=== PATIENT | female | born 1970 | race African-American/Black ===

== ENCOUNTER 2016-07-28 13:21 | Observation (INO) | payer MEDICARE, MEDICAID ==
[2016-07-28 14:21] LABS: Hematocrit 26 % (35-47); Hemoglobin 8.5 g/dl (12.0-16.0); Mean Corpuscular HGB Conc 33 g/dl (31-36); Mean Corpuscular Hemoglobin 30 pg (27-31); Mean Corpuscular Volume 91 fL (80-97); Mean Platelet Volume 9 um3 (7.4-10.4); Red Cell Distribution Width 17 % (10.5-15); White Blood Count 5.9 10^3/ul (3.5-10.8)
[2016-07-28 14:35] LABS: Albumin 3.6 g/dL (3.2-5.2); BUN/Creatinine Ratio 5.3 (8-20); Calcium 9.7 mg/dL (8.6-10.3); EGFR African American 6.7 (>60); EGFR Non-African American 5.2 (>60); Globulin 3.4 g/dL (2-4); Magnesium 2.3 mg/dL (1.9-2.7); Potassium 5.4 mmol/L (3.5-5.0); Total Bilirubin 0.5 mg/dL (0.2-1.0)
[2016-07-28] MEDS ORDERED: oxyCODONE TAB* 5 MG TAB PO ONE (14:40)
--- NOTE | 2016-07-28 14:44 | RAD ---
HISTORY: Shortness of breath, cough, CHF COMPARISONS: June 23, 2016 VIEWS:1: Single frontal portable view of the chest at 2:20 PM FINDINGS: LINES AND TUBES: None. CARDIOMEDIASTINAL SILHOUETTE: The cardiac silhouette is enlarged. The cardiomediastinal silhouette is otherwise normal for portable technique. PLEURA: The costophrenic angles are sharp. No pleural abnormalities are noted. LUNG PARENCHYMA: There is patchy alveolar opacification of the right lower lung. There is prominence of the central pulmonary vasculature ABDOMEN: The upper abdomen is clear. There is no subphrenic gas. BONES AND SOFT TISSUES: No bone or soft tissue abnormalities are noted. IMPRESSION: 1. CARDIOMEGALY. 2. PULMONARY VASCULAR CONGESTION. 3. PATCHY RIGHT BASILAR ATELECTASIS VERSUS CONSOLIDATION
[2016-07-28 14:52] LABS: Troponin I 0.97 ng/mL (<0.04)
--- NOTE | 2016-07-28 15:28 | ED ---
Piero Johnston Matthew, scribed for Clayton Landry MD on 07/28/16 at 1407 . Shortness of Breath - HPI Summary HPI Summary: A 45 y/o female presents to the ED with SOB for the past two days. The patient states she is fine while sitting, but becomes SOB with exertion. She had dialysis on 07/26/16 and did not leave at her dry weight of 107 and left at 109.8kg. Associated symptoms include pedal edema, inability to sleep, and palpitations. The patient denies wheezing, general illness, and rhinorrhea. The patient feels better sitting up. This has happened to the patient before. She is also going to [facility] for a heart catheterization. The patient see's Dr. Adams. Her normal dialysis is tomorrow. - History of Current Complaint Chief Complaint: EDShortnessOfBreath Time Seen by Provider: 07/28/16 13:48 Hx Obtained From: Patient Onset/Duration: Gradual Onset, Lasting Days, Still Present Timing: Constant Current Severity: Moderate Dyspnea At: Exertion Alleviating Factors: Upright Position Associated Signs & Symptoms: Calf Pain/Swelling - Allergy/Home Medications Allergies/Adverse Reactions: Allergies Allergy/AdvReac Type Severity Reaction Status Date / Time Allopurinol Allergy Severe Fever Verified 07/28/16 13:34 PMH/Surg Hx/FS Hx/Imm Hx Endocrine/Hematology History: Reports: Hx Anticoagulant Therapy - ASA 81, Hx Diabetes - TYPE 2 Denies: Hx Thyroid Disease Cardiovascular History: Reports: Hx Cardiomegaly - new, Hx Congestive Heart Failure, Hx Hypercholesterolemia, Hx Hypertension, Other Cardiovascular Problems /Disorders - pericardial effusion Denies: Hx Angina, Hx Coronary Artery Disease, Hx Deep Vein Thrombosis, Hx Myocardial Infarction, Hx Pacemaker/ICD, Hx Valvular Heart Disease Respiratory History: Reports: Hx Chronic Bronchitis, Hx Pulmonary Edema, Other Respiratory Problems/Disorders - chronic cough Denies: Hx Asthma, Hx Chronic Obstructive Pulmonary Disease (COPD), Hx Lung Cancer GI History: Reports: Hx Gastroesophageal Reflux Disease Denies: Hx Gall Bladder Disease, Hx Gastrointestinal Bleed, Hx Ulcer, Hx Urosepsis History: Reports: Hx Chronic Renal Failure, Hx Dialysis - MWF, Hx Renal Disease - CHRONIC RENAL FAILURE. AWAITING TRANSPLANT on dialysis. , Other Problems/Disorders - renal failure cyst Denies: Hx Acute Renal Failure, Hx Benign Prostatic Hyperplasia, Hx Kidney Infection, Hx Kidney Stones Musculoskeletal History: Reports: Hx Arthritis, Hx Back Problems, Hx Osteoporosis, Other Musculoskeletal History - arthritis osteoarthritis right knee Sensory History: Reports: Hx Contacts or Glasses, Hx Glaucoma, Hx Hearing Aid - REMOVED Opthamlomology History: Reports: Hx Contacts or Glasses, Hx Glaucoma Neurological History: Reports: Hx Headaches, Other Neuro Impairments/Disorders - neuropathy benito feet Denies: Hx Dementia, Hx Migraine, Hx Seizures, Hx Transient Ischemic Attacks (TIA) Psychiatric History: Reports: Hx Anxiety, Hx Depression Denies: Hx Panic Disorder - Surgical History Surgery Procedure, Year, and Place: 2000, 2002. LEFT HIP SX PIN 1985. Cardiac cath, no stent. Renal fistual L arm. pericardial window Hx Anesthesia Reactions: No - Immunization History Date of Influenza Vaccine: 2015 Infectious Disease History: No Infectious Disease History: Denies: Hx Clostridium Difficile, Hx Hepatitis, Hx Human Immunodeficiency Virus (HIV), Hx of Known/Suspected MRSA, Hx Shingles, Hx Tuberculosis, Hx Known/ Suspected VRE, Hx Known/Suspected VRSA, History Other Infectious Disease, Traveled Outside the [place] in Last 30 Days - Family History Known Family History: Positive: Hypertension, Diabetes Negative: Cardiac Disease - Social History Alcohol Use: None Substance Use Type: Reports: None Hx Tobacco Use: Yes - quit 2012 Smoking Status (MU): Former Smoker Type: Cigarettes Length of Time of Smoking/Using Tobacco: 10+ Have You Smoked in the Last Year: No Review of Systems Constitutional: Other - inability to sleep Eyes: Negative ENT: Negative Positive: Palpitations Positive: Shortness Of Breath Gastrointestinal: Negative Genitourinary: Negative Musculoskeletal: Negative Skin: Negative Neurological: Negative Psychological: Normal All Other Systems Reviewed And Are Negative: Yes Physical Exam - Summary Physical Exam Summary: The patient is well-nourished, obese, in no acute distress and in no acute pain. The skin is warm and dry and skin color reflects adequate perfusion. HEENT: The head is normocephalic and atraumatic. The pupils are equal and reactive. The conjunctivae are clear and without drainage. Nares are patent and without drainage. Mouth reveals moist mucous membranes and the throat is without erythema and exudate. The external ears are intact. The ear canals are patent and without drainage. The tympanic membranes are intact. Neck is supple with full range of motion and non-tender. There are no carotid bruits. Neck vein distention noted. Respiratory: Chest is non-tender. The patient has bilateral crackles in the base of the lungs with the left greater than the right. Cardiovascular: Heart is tachycardic and regular rhythm. There is no murmur or rub auscultated. Pulses are symmetrical and equal. Abdomen: The abdomen is soft and non-tender. There are normal bowel sounds heard in all four quadrants and there is no organomegaly palpated. Musculoskeletal: There is no back pain noted. Extremities are non-tender with full range of motion. There is good capillary refill. There is no calf tenderness elicited. The patient has pitting edema of the LE. Neurological: Patient is alert and oriented to person, place and time. The patient has symmetrical motor strength in all four extremities. Cranial nerves are grossly intact. Deep tendon reflexes are symmetrical and equal in all four extremities. Psychiatric: The patient has an appropriate affect and does not exhibit any anxiety or depression. Triage Information Reviewed: Yes Vital Signs On Initial Exam: Initial Vitals Temp Pulse Resp BP Pulse Ox 97.6 F 96 18 171/87 99 07/28/16 13:25 07/28/16 13:25 07/28/16 13:25 07/28/16 13:25 07/28/16 13:25 Vital Signs Reviewed: Yes Diagnostics - Vital Signs Vital Signs Temp Pulse Resp BP Pulse Ox 07/28/16 13:25 97.6 F 96 18 171/87 99 - Laboratory Lab Results: Lab Results 07/28/16 07/28/16 07/28/16 Range/Units 14:12 14:12 14:12 WBC 5.9 (3.5-10.8) 10^3/ul RBC 2.80 L (4.0-5.4) 10^6/ul Hgb 8.5 L (12.0-16.0) g/dl Hct 26 L (35-47) % MCV 91 (80-97) fL MCH 30 (27-31) pg MCHC 33 (31-36) g/dl RDW 17 H (10.5-15) % Plt Count 200 (150-450) 10^3/ul MPV 9 (7.4-10.4) um3 Neut % (Auto) 59.8 (38-83) % Lymph % (Auto) 25.5 (25-47) % Bates % (Auto) 9.9 H (1-9) % Eos % (Auto) 3.4 (0-6) % Baso % (Auto) 1.4 (0-2) % Absolute Neuts (auto) 3.5 (1.5-7.7) 10^3/ul Absolute Lymphs (auto) 1.5 (1.0-4.8) 10^3/ul Absolute Monos (auto) 0.6 (0-0.8) 10^3/ul Absolute Eos (auto) 0.2 (0-0.6) 10^3/ul Absolute Basos (auto) 0.1 (0-0.2) 10^3/ul Absolute Nucleated RBC 0.01 10^3/ul Nucleated RBC % 0.1 INR (Anticoag Therapy) (0.89-1.11) Sodium 135 (133-145) mmol/L Potassium 5.4 H (3.5-5.0) mmol/L Chloride 92 L (101-111) mmol/L Carbon Dioxide 34 H (22-32) mmol/L Anion Gap 9 (2-11) mmol/L BUN 44 H (6-24) mg/dL Creatinine 8.36 H (0.51-0.95) mg/dL Est GFR ( Amer) 6.7 (>60) Est GFR (Non-Af Amer) 5.2 (>60) BUN/Creatinine Ratio 5.3 L (8-20) Glucose 129 H (70-100) mg/dL Lactic Acid 1.0 (0.5-2.0) mmol/L Calcium 9.7 (8.6-10.3) mg/dL Magnesium 2.3 (1.9-2.7) mg/dL Total Bilirubin 0.50 (0.2-1.0) mg/dL AST 15 (13-39) U/L ALT 8 (7-52) U/L Alkaline Phosphatase 49 (34-104) U/L Troponin I 0.97 H* (<0.04) ng/mL Total Protein 7.0 (6.4-8.9) g/dL Albumin 3.6 (3.2-5.2) g/dL Globulin 3.4 (2-4) g/dL Albumin/Globulin Ratio 1.1 (1-3) 07/28/16 Range/Units 14:12 WBC (3.5-10.8) 10^3/ul RBC (4.0-5.4) 10^6/ul Hgb (12.0-16.0) g/dl Hct (35-47) % MCV (80-97) fL MCH (27-31) pg MCHC (31-36) g/dl RDW (10.5-15) % Plt Count (150-450) 10^3/ul MPV (7.4-10.4) um3 Neut % (Auto) (38-83) % Lymph % (Auto) (25-47) % Bates % (Auto) (1-9) % Eos % (Auto) (0-6) % Baso % (Auto) (0-2) % Absolute Neuts (auto) (1.5-7.7) 10^3/ul Absolute Lymphs (auto) (1.0-4.8) 10^3/ul Absolute Monos (auto) (0-0.8) 10^3/ul Absolute Eos (auto) (0-0.6) 10^3/ul Absolute Basos (auto) (0-0.2) 10^3/ul Absolute Nucleated RBC 10^3/ul Nucleated RBC % INR (Anticoag Therapy) 1.40 H (0.89-1.11) Sodium (133-145) mmol/L Potassium (3.5-5.0) mmol/L Chloride (101-111) mmol/L Carbon Dioxide (22-32) mmol/L Anion Gap (2-11) mmol/L BUN (6-24) mg/dL Creatinine (0.51-0.95) mg/dL Est GFR ( Amer) (>60) Est GFR (Non-Af Amer) (>60) BUN/Creatinine Ratio (8-20) Glucose (70-100) mg/dL Lactic Acid (0.5-2.0) mmol/L Calcium (8.6-10.3) mg/dL Magnesium (1.9-2.7) mg/dL Total Bilirubin (0.2-1.0) mg/dL AST (13-39) U/L ALT (7-52) U/L Alkaline Phosphatase (34-104) U/L Troponin I (<0.04) ng/mL Total Protein (6.4-8.9) g/dL Albumin (3.2-5.2) g/dL Globulin (2-4) g/dL Albumin/Globulin Ratio (1-3) Result Diagrams: 07/28/16 14:12 07/28/16 14:12 Lab Statement: Any lab studies that have been ordered have been reviewed, and results considered in the medical decision making process. - Radiology CXR Xray Interpretation: Positive (See Comments) - IMPRESSION: 1. CARDIOMEGALY. 2. PULMONARY VASCULAR CONGESTION. 3. PATCHY RIGHT BASILAR ATELECTASIS VERSUS CONSOLIDATION Radiology Interpretation Completed By: Radiologist - EKG 13:41 Cardiac Rate: Tachycardia - 98 bpm EKG Rhythm: Sinus Tachycardia EKG Interpretation: Normal [place]; T-Wave Inversion in I, aVL, V5, and V6; No STEMI Re-Evaluation - Re-Evaluation First Eval Re-Evaluation Time: 15:19 Comment: Discussed plan of care with patient. Pt agrees with plan. Course/Dx - Course Assessment/Plan: I discussed care with Dr. 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 He will arrange dialysis. Patient will be admitted to Dr. Vazquez for further management. - Diagnoses Differential Diagnosis/HQI/PQRI: Positive: CHF, OK, Pneumonia, Other - acute renal failure Provider Diagnoses: Acute CHF, Renal failure, Elevated troponin - Physician Notifications Discussed Care of Patient With: Dr. Adams (nephrology) at 15:00 - he will arrange for dialysis. Dr. Vazquez (hospitalist) at 15:10 - agrees to admit. Discharge - Discharge Plan Condition: Stable Disposition: ADMITTED TO [facility] Referrals: Arti Brito MD [Primary Care Provider] - The documentation as recorded by the Piero chavez Matthew accurately reflects the service I personally performed and the decisions made by me, Clayton Landry MD.
[2016-07-28] MEDS ORDERED: Acetaminophen TAB* 325 MG PO PRN (15:57)
[2016-07-28] MEDS ORDERED: oxyCODONE TAB* 5 MG TAB PO PRN ×2 (16:00→16:48)
[2016-07-28] MEDS ORDERED: Benzonatate CAP* 100 MG PO PRN (16:00)
[2016-07-28] MEDS ORDERED: Ondansetron ODT TAB* 4 MG PO PRN (16:00)
[2016-07-28] MEDS ORDERED: Sevelamer TAB* 800 MG PO SCH (16:00)
[2016-07-28] MEDS ORDERED: Sodium Polystyrene ORAL.SOL* 15 GM/60 ML BTL PO ONE (16:03)
[2016-07-28] MEDS ORDERED: Dextrose 50% Syringe 50 ML* 25 GM/50 ML SYRINGE IV PUSH PRN ×2 (16:52→16:55)
[2016-07-28] MEDS ORDERED: Insulin LISPRO* 1 UNITS UNIT SUBCUT ONE (16:55)
[2016-07-28] MEDS ORDERED: Dextrose 50% Syringe 50 ML* 25 GM/50 ML SYRINGE IV PUSH ONE (16:55)
[2016-07-28] MEDS ORDERED: Atorvastatin* 80 MG TAB PO SCH (17:00)
[2016-07-28] MEDS ORDERED: Warfarin TAB(*) 5 MG PO SCH (17:00)
[2016-07-28] MEDS ORDERED: Warfarin TAB(*) 6 MG PO SCH (17:00)
[2016-07-28 18:32] LABS: BUN/Creatinine Ratio 5.3 (8-20); Calcium 9.5 mg/dL (8.6-10.3); EGFR African American 6.4 (>60); Potassium 5.9 mmol/L (3.5-5.0)
[2016-07-28] MEDS ORDERED: Zolpidem TAB* 5 MG PO PRN (21:00)
[2016-07-28] MEDS: Valsartan TAB* 40 MG PO SCH (21:52)
[2016-07-28] MEDS: hydrALAZINE TAB* 25 MG PO SCH (21:52)
[2016-07-28] MEDS: Carvedilol TAB* 25 MG PO SCH (21:53)
[2016-07-28] MEDS: Sevelamer TAB* 800 MG PO SCH (21:53)
[2016-07-28] MEDS: Isosorbide Dinitrate TAB* 10 MG PO SCH (21:54)
[2016-07-28] MEDS: Heparin VIAL(*) 5000 UNITS/ML VIAL (FIVE THOUSAND) SUBCUT SCH (21:55)
[2016-07-29] MEDS ORDERED: Hydrocortisone 1% CREAM* 30 GM TUBE TOPICAL PRN (02:18)
--- NOTE | 2016-07-29 03:55 | HP ---
ADMISSION HISTORY AND PHYSICAL: DATE OF ADMISSION: 07/28/16 PRIMARY CARE PROVIDER: Arti Brito MD ADMITTING PROVIDER: SHAMAR Lozano SUPERVISING PHYSICIAN: DO Pricilla Hanson (DICTATED BY SHAMAR LOZANO) CHIEF COMPLAINT: Shortness of breath. HISTORY OF PRESENT ILLNESS: This is a 45-year-old female with a history of insulin dependent diabetes; end-stage renal disease, on hemodialysis; hypertension; hyperlipidemia; and history of cardioembolic stroke for which she is anticoagulated with Coumadin who presented with complaints of shortness of breath to the emergency department. The patient states that she has been symptomatic since Friday evening. Her last dialysis was on Friday morning. She felt that not enough fluid had been taken off and her weight leaving dialysis was slightly greater than what is typical for her. She has been describing symptoms consistent with orthopnea, where she feels short of breath and as if she is drowning when she lays flat on her back, but has improved symptoms when she is sitting upright. She does not keep close track of her weight at home and is unsure if she has gained additional weight over the last couple of days. She does have some chronic lower extremity edema that she thinks maybe is slightly worse than usual, but not significantly so. She does complain of a dry cough that seems to be worse recently as well. She does have intermittent left-sided chest pressure and states that she is scheduled for cardiac catheterization in [place] for next week. She was admitted here in March with her stroke and there was abnormal calcification on her mitral valve at that time. The patient states that she had similar symptoms after dialysis on Friday of this week as well and which was also accompanied by palpitations. The patient denies any recent febrile illness. She denies any GI symptoms including abdominal pain, nausea, vomiting, or diarrhea. No urinary symptoms. PAST MEDICAL HISTORY: 1. End stage renal disease, on hemodialysis with a Friday, Friday, and Friday scheduled, followed by Dr. Adams. 2. Insulin-dependent diabetes since the young age, unsure if she is truly a type 1 diabetic or an early type 2 diabetic, who is now insulin dependent but she does not require any long-acting insulin and reports good glucose control. 3. Hypertension. 4. History of CVA thought to be cardioembolic in origin, chronically anticoagulated with Coumadin without significant residual deficit. 5. History of pericardial effusion, status post pericardial window. 6. Hyperlipidemia. 7. Chronic pain related to osteoarthritis. 8. She also had a history of congestive heart failure with an ejection fraction of 40% to 45%, last measured in March 2016. PAST SURGICAL HISTORY: 1. x2. 2. Left hip pinning at a young age. 3. Pericardial window. 4. AV fistula formation. HOME MEDICATIONS: 1. Lipitor 80 mg p.o. daily. 2. Tessalon 100 mg p.o. t.i.d. as needed. 3. Carvedilol 25 mg p.o. b.i.d. 4. Hydrocortisone cream 2.5% applied topically 3 times daily as needed for rash. 5. NovoLog on a sliding scale anywhere from 0 to 10 units with meals. 6. Isosorbide dinitrate 10 mg p.o. t.i.d. 7. Zofran oral dissolvable tablets 4 mg p.o. q.6 hours as needed for nausea. 8. Renvela 800 mg p.o. t.i.d. with meals. 9. Valsartan 40 mg p.o. b.i.d. 10. Coumadin 5 mg p.o. daily. 11. Amlodipine 10 mg p.o. daily. 12. Hydralazine 25 mg p.o. t.i.d. 13. Oxycodone 10 mg p.o. q4-6 hours as needed for pain. SOCIAL HISTORY: The patient lives at home with her 2 teenage children. She does have a smoking history but quit 4 years ago approximately a 10-pack year history. Denies any regular alcohol consumption. Not currently employed. REVIEW OF SYSTEMS: As listed above in the HPI. PHYSICAL EXAMINATION GENERAL: This is a very pleasant 45-year-old female, in no acute distress, sitting comfortably in hospital stretcher. INITIAL VITAL SIGNS: Temperature 97.6 degrees Fahrenheit, pulse 96 beats per minute, respiratory rate 18 per minute, oxygen saturation 99% on room air, and blood pressure 171/87 mmHg and repeat blood pressure down to 138/84 mmHg. HEENT: Head is normocephalic, atraumatic. Mucous membranes are pink and moist. RESPIRATORY: The patient has a normal work of breathing. There are a few crackles and slight wheeze appreciated in posterior lung tapia bilaterally. No rhonchi, however. CARDIOVASCULAR: Heart has a regular rate and rhythm without murmurs, rubs, or gallops. ABDOMEN: Soft and nontender to palpation. EXTREMITIES: There is trace to 1+ edema noted bilaterally. SKIN: Limited exam, shows no evidence of rashes or lesions. PSYCHE: The patient is alert and appropriately oriented. DIAGNOSTIC STUDIES/LAB EVALUATION: CBC shows a normal white blood cell count of 5.9; hemoglobin 8.5 g/dL; and platelet count of 200,000. INR at 1.4. Comprehensive metabolic panel shows a sodium of 135 mmol/L, potassium elevated at 5.4 mmol/L, serum bicarb 34, BUN 44, creatinine of 8.3, estimated GFR of 5, and random glucose of 129 mg/dL. Lactic acid normal at 1.0 and mag normal at 2.3. Transaminases and total bilirubin within normal limits. Troponin elevated at 0.97. IMAGING: Chest x-ray shows cardiomegaly with evidence of pulmonary venous congestion and patchy right basilar atelectasis versus infiltrates. EKG shows a sinus rhythm with ST depressions presents in leads I and aVL, but when compared to old EKGs, this appears to be chronic in nature. No other ischemic changes appreciated. ASSESSMENT AND PLAN: This is a 45-year-old female with a complicated medical history including insulin-dependent diabetes, end stage renal disease, history of cardioembolic stroke, chronic pain, and history of pericardial effusion who presents with complaints of shortness of breath, which has been persistent since dialysis on Friday. The patient is being admitted with evidence of congestive heart failure exacerbation and elevated troponin. 1. Congestive heart failure exacerbation - the patient appears to be fluid overloaded. Her follow up manager, Dr. Adams, was contacted by emergency department physician. The patient will be scheduled for dialysis tomorrow morning. There is no indication for emergent dialysis as the patient does appear to be stable at this time and does not require respiratory support. The last echocardiogram is from March 2016, ejection fraction was estimated at 40% to 45%. At that time, she did have some focal wall motion abnormalities appreciated as well. She does have a pending cardiac catheterization scheduled in [place] for next week. 2. Elevated troponin - the patient does have a significantly elevated troponin when compared to the prior labs, her troponin is chronically elevated but usually at approximately level of 0.1 to 0.2 and today it is at 0.96. There is no new EKG changes. She is not having any chest pain currently and there is no evidence for acute coronary syndrome. Suspect that this is demand related secondary to congestive heart failure exacerbation related to her hypervolemic state. We plan on trending her troponins and maintaining continuous telemetry monitoring. Expect improvement after dialysis tomorrow. Plan to repeat echocardiogram to evaluate for new wall motion changes. 3. Hyperkalemia - this is associated with her renal insufficiency. We will give a dose of Kayexalate orally and plan to repeat metabolic panel in a couple of hours. No EKG changes noted. 4. End stage renal disease, on hemodialysis, followed by Dr. Adams - we will plan to dialyze her tomorrow. 5. Insulin dependent diabetes - check a hemoglobin A1C. Continue sliding scale , short-acting insulin with meal times at this time. 6. History of cardioembolic stroke in March 2016 - chronically anticoagulated with Coumadin. INR is subtherapeutic at this time, however, at 1.4. We will not bridge with Lovenox at this time. Plan to repeat INR tomorrow and adjust her Coumadin accordingly. 7. History of pericardial effusion, status post pericardial window. 8. Hyperlipidemia. 9. Chronic pain secondary to osteoarthritis - we will continue her typical home doses of oxycodone. 10. Code status: The patient is full code. 11. Health care proxy: Listed as her mother. 12. DVT prophylaxis - the patient is [id number] risk for DVT. She will be placed on heparin. Due to her end-stage renal disease, Lovenox is contraindicated. 13. Disposition: The patient is being admitted to observation status with anticipated discharge tomorrow following hemodialysis. SHAMAR LOZANO CC: Arti Brito MD * [id number]/[facility] #: [id number] MTDD
[2016-07-29 05:04] LABS: Calcium 9.4 mg/dL (8.6-10.3); EGFR African American 7.9 (>60); EGFR Non-African American 6.2 (>60); Potassium 4.5 mmol/L (3.5-5.0)
[2016-07-29] MEDS: Heparin VIAL(*) 5000 UNITS/ML VIAL (FIVE THOUSAND) SUBCUT SCH (05:31)
[2016-07-29 07:46] LABS: Troponin I 1.13 ng/mL (<0.04)
[2016-07-29] MEDS: Sevelamer TAB* 800 MG PO SCH (08:52)
[2016-07-29] MEDS: Valsartan TAB* 40 MG PO SCH (08:52)
[2016-07-29] MEDS: hydrALAZINE TAB* 25 MG PO SCH (08:53)
[2016-07-29] MEDS: Carvedilol TAB* 25 MG PO SCH (08:53)
[2016-07-29] MEDS: Isosorbide Dinitrate TAB* 10 MG PO SCH (08:53)
[2016-07-29] MEDS ORDERED: amLODIPine TAB* 5 MG PO SCH (09:00)
[2016-07-29 09:05] VITALS: BP 145/56
[2016-07-29] MEDS: Insulin LISPRO* 1 UNITS UNIT SUBCUT SCH ×2 (09:05→12:28)
--- NOTE | 2016-07-29 13:30 | ECHO ---
Patient: DIVYA CHENG [facility] Rec#: [id number] : 1970 Date: 07/29/2016 Age: 45y Height: 177.8 cm / 70.0 in Weight: 109.32 kg / 240.9 lbs Sex: F BSA: 2.26 Room#: 435 Admit Date#: 07/28/2016 Type: Inpatient Referring: Reno Barrera Reading: Milind Ceballos MD Senior Analyst Programmer: Yuly Woodward RDCS CC: Jose Adams MD CC: Arti Brito MD Transthoracic Echocardiogram Indication: CHF/orthopnea/elevated troponins BP: 149/74 HR: 66 Rhythm: NSR Findings History: ESRD with dialysis,HTN,DM,prior pericardial effusion requiring a window,CVA,HLD. Technical Comments: The study quality is good. Completed at 0845. Left Ventricle: The left ventricular chamber size is normal. Moderate concentric left ventricular hypertrophy is observed. There is a focal wall motion abnormality present. There is mildly decreased left ventricular systolic function. The estimated ejection fraction is 40-45%. The assessment of diastolic function is non-diagnostic. The basal anteroseptal, basal inferoseptal, mid anteroseptal, mid inferoseptal, and apical septal wall segments are hypokinetic (score 2). Overall wallmotion score index is 1.31 Left Atrium: The left atrial chamber size is normal. Right Ventricle: The right ventricular cavity size is normal. The right ventricular global systolic function is normal. Right Atrium: The right atrium is moderately dilated. Aortic Valve: The aortic valve is trileaflet. The aortic valve leaflets are mildly thickened. There is a trace of aortic regurgitation. There is no evidence of aortic stenosis. Mitral Valve: There is mitral annular calcification. The mitral valve leaflets are moderately thickened. The posterior leaflet of the mitral valve is thickened. Moderate mitral leaflet calcification is visualized. Mitral valve leaflet mobility is moderately restricted. There is mild to moderate mitral regurgitation. There is mild mitral stenosis. Tricuspid Valve: The tricuspid valve leaflets are normal. There is mild to moderate tricuspid regurgitation. The tricuspid regurgitant jet is directed toward the septum. There is evidence of mild pulmonary hypertension. There is no tricuspid stenosis. Pulmonic Valve: The pulmonic valve appears normal. There is mild pulmonic regurgitation. There is no pulmonic stenosis. Pericardium: The pericardium appears normal. There is no pericardial effusion. Aorta: There is no dilatation of the ascending aorta. There is no dilatation of the aortic arch. There is no dilation of the aortic root. Pulmonary Artery: The main pulmonary artery appears normal. Venous: The inferior vena cava appears normal in size. There is a greater than 50% respiratory change in the inferior vena cava dimension. Conclusions Moderate concentric left ventricular hypertrophy is observed. There is a focal wall motion abnormality present. There is mildly decreased left ventricular systolic function. The estimated ejection fraction is 40-45%. The basal anteroseptal, basal inferoseptal, mid anteroseptal, mid inferoseptal, and apical septal wall segments are hypokinetic (score 2). The aortic valve leaflets are mildly thickened. There is a trace of aortic regurgitation. The posterior leaflet of the mitral valve is thickened. There is mild to moderate mitral regurgitation. There is mild mitral stenosis. There is mild to moderate tricuspid regurgitation. There is evidence of mild pulmonary hypertension. There is no pericardial effusion. Compared to study of 04/08/16, the LV function is lower and has new wall motion abnormality. The Mitral regurgitation is worse. Measurements Name Value Normal Range RVIDd (AP) 2D 2.6 cm (0.9 - 2.6) RVDdMajor (2D) 3.7 cm (2.2 - 4.4) RAd ISD 4CH 6.3 cm (3.4 - 4.9) RA (A4C)W 4.8 cm (2.9 - 4.6) IVSd (2D) 1.5 cm (0.6 - 1) LVPWd (2D) 1.5 cm (0.6 - 1) LVIDd (2D) 5.1 cm (3.6 - 5.4) LVIDs (2D) 3.9 cm - LV FS (2D) 23 % (25 - 45) Aortic Annulus 1.6 cm (1.4 - 2.6) Ao root diameter (2D) 2.7 cm (2.1 - 3.5) Ascending Ao 3 cm (2.1 - 3.4) Aortic arch 2.3 cm (1.8 - 3.4) LA dimension (AP) 2D 3.6 cm (2.3 - 3.8) LAd ISD 4CH 7.2 cm (2.9 - 5.3) LA ISD 4CH W 4.3 cm (2.5 - 4.5) Name Value Normal Range LA ESV SP 4CH (A/L) 88 ml - LA ESV SP 2CH (A/L) 97 ml - LA ESV BP (A/L) 104 ml - LA ESV BP (A/L) index 45.81 ml/m2 - LA ESV SP 4CH (MOD) 80 ml - LA ESV SP 2CH (MOD) 92 ml - Name Value Normal Range MV E-wave Vmax 2.1 m/sec - MV deceleration time 184 msec - MV A-wave Vmax 0.9 m/sec - MV E:A ratio 2.32 ratio - LV septal e' Vmax 0.03 m/sec - LV lateral e' Vmax 0.05 m/sec - LV E:e' septal ratio 70 ratio - LV E:e' lateral ratio 42 ratio - Name Value Normal Range AV Vmax 1.8 m/sec - AV VTI 40.4 cm - AV peak gradient 12.96 mmHg - AV mean gradient 6 mmHg - LVOT diameter 1.8 cm - LVOT Vmax 1.2 m/sec - LVOT VTI 28.3 cm - LVOT peak gradient 6.14 mmHg - LVOT mean gradient 3.03 mmHg - SV LVOT 72 ml - Name Value Normal Range MV Vmax 2.2 m/sec - MV VTI 39.4 cm - MV peak gradient 19.36 mmHg - MV mean gradient 4.31 mmHg - MV PHT 41 msec - MR Vmax 2.2 m/sec - MR VTI 39.4 cm - MVA (PHT) 5.4 cm2 - MVA (continuity VTI) 1.8 cm2 - Name Value Normal Range TR Vmax 3.6 m/sec - TR peak gradient 52 mmHg - RAP 3 mmHg - RVSP 55 mmHg - IVC diameter 1.8 cm - Name Value Normal Range PV Vmax 1.1 m/sec - PV peak gradient 4.84 mmHg - Wallmotion BAS Hypokinetic BA Normal BAL Normal KAVIN Normal BI Normal BIS Hypokinetic MAS Hypokinetic MA Normal MAL Normal MIL Normal CA Normal MIS Hypokinetic Hypokinetic AA Normal AL Normal AI Normal APEX Normal
--- NOTE | 2016-07-29 18:13 | CONS ---
INTERVENTIONAL CARDIOLOGY CONSULT: DATE OF CONSULT: 07/29/16 PRIMARY CARE PHYSICIAN: Dr. Brito. ENGINEER INTERNSHIP: Dr. Adams. CARDIOLOGISTS: Dr. Leavitt and also Dr. Brady at [place]. HISTORY OF PRESENT ILLNESS: A 45-year-old woman with chronic renal failure, on dialysis, admitted with volume overload and heart failure. Interventional Cardiology consulted because of abnormal troponin. She had a catheterization here in [address] Leav[address] for abnormal troponins, per report she had no coronary disease. For many years, she has had recurring episodes of primarily left inframammary chest pressure lasting a few minutes, unrelated to activity or exertion, without any change in pattern. Recently, her weight has been increasing, and she developed symptoms of heart failure, was admitted and dialyzed and is now back to baseline. Throughout all this, she has not had any chest heaviness, tightness, pressure, burning, or any other symptoms to suggest angina. With volume removal, her orthopnea has resolved. She has not had any change in her exercise tolerance. She is scheduled already for a cath tomorrow morning at [facility], which was arranged because she was noted to have some calcification in her coronary arteries presumably on a CT scan. PAST MEDICAL HISTORY: Status post pericardial window for pericardial effusion; CKD, stage V; diabetes, type 2; hypertension; history of embolic CVA, on anticoagulation. ALLERGIES: ALLOPURINOL. FAMILY HISTORY: Negative for premature coronary artery disease. SOCIAL HISTORY: She is a nonsmoker. REVIEW OF SYSTEMS: General: No weight loss, back to baseline with volume removal. Pulmonary: See HPI. GI: No peptic ulcer disease or bleeding. Remainder negative. PHYSICAL EXAM: She is not tachypneic or dyspneic, she is overweight, looks comfortable. Her BP 145/56 and heart rate is 70s, sinus rhythm. Her lungs are clear to percussion and auscultation without rales. JVP is normal. Carotids are normal. HEENT is unremarkable. Cardiac Exam: Notable only for a very soft systolic murmur. No diastolic murmur, no gallop, no rub. Abdomen is obese , nontender. Normal bowel sounds. She has trace pitting edema. Palpable radial pulses. DIAGNOSTIC STUDIES/LAB DATA: Troponin 0.97, 1.26, 1.16, 1.13, in the past her baseline troponins have ranged from 0.07 to 0.25. EKG shows again LVH with ST-T wave changes in the lateral leads and intermittently V6, unchanged from previous. Chest x-ray again shows cardiomegaly with pulmonary venous hypertension, similar to 06/23/16 given the difference in technique. BNP in June was 1302. We do not have one this admission. Creatinine 7.2. Her weight on admission was 247 pounds and 9 ounces with a baseline of 236. IMPRESSION: Abnormal troponin. This is almost certainly due to her heart failure presentation with underlying renal insufficiency. There is nothing to suggest acute coronary syndrome in that she has not had any chest pain symptoms , has no EKG changes. She has coronary atherosclerosis per history based on calcification in her coronaries, but it is unclear whether she has any significant obstructive coronary artery disease. She is already scheduled for cath tomorrow morning at at [facility], and already has medical transport arranged to get there. In the absence of acute coronary syndrome and her being back to her baseline, I think she can be discharged to proceed with the planned cardiac evaluation. Thanks for the consultation. CC: Dr. Brito; Dr. Adams; Dr. Leavitt; Christiano Larsen * [id number]/[facility] #: [id number] CORKY
--- NOTE | 2016-07-30 15:28 | DS ---
DISCHARGE SUMMARY: DATE OF ADMISSION: 07/28/16 DATE OF DISCHARGE: 07/29/16 PRIMARY CARE PROVIDER: Dr. Arti Brito. PRIMARY SAFETY COMPLIANCE SPECIALIST: Dr. Adams. CONSULTING CASE AIDE: Dr. Harris. DISCHARGING PROVIDER: SHAMAR Lozano SUPERVISING PHYSICIAN: Dr. Marge Rosenbaum * (dictated by SHAMAR Lozano) PRIMARY DISCHARGE DIAGNOSES: 1. Congestive heart failure exacerbation. 2. Elevated troponin, likely demand related. 3. Ischemic cardiomyopathy, pending cardiac catheterization at [facility] tomorrow, 07/30/16. 4. Hyperkalemia - resolved. SECONDARY DISCHARGE DIAGNOSES: 1. End-stage renal disease, on hemodialysis, followed by Dr. Adams on a Friday , Friday, Friday schedule. 2. Insulin-dependent diabetes with a hemoglobin A1c of 6.4%. 3. History of cardioembolic stroke with subtherapeutic INR, anticoagulated with Coumadin. 4. History of pericardial effusion, status post pericardial window. 5. Chronic pain related to osteoarthritis. DISCHARGE MEDICATIONS: 1. Lipitor 80 mg p.o. daily. 2. Benzonatate 100 mg p.o. t.i.d. as needed for cough. 3. Carvedilol 25 mg p.o. twice daily. 4. Hydrocortisone cream 2.5% apply topically 3 times daily as needed for rash. 5. NovoLog on a sliding scale of 0 to 10 units subcu with meals. 6. Isosorbide dinitrate 10 mg p.o. 3 times daily. 7. Zofran 4 mg p.o. q.6 hours p.r.n. nausea and vomiting. 8. Renvela 800 mg p.o. 3 times daily with meals. 9. Valsartan 40 mg p.o. b.i.d. 10. Coumadin 5 mg p.o. daily. 11. Amlodipine 10 mg p.o. daily. 12. Hydralazine 25 mg p.o. 3 times daily. 13. Oxycodone 10 mg p.o. q.4-6 hours as needed for pain. Medication changes: None. HOSPITAL IMAGIN. Chest x-ray shows cardiomegaly with evidence of pulmonary venous congestion with right basilar atelectasis. 2. Transthoracic echocardiogram shows ejection fraction of 40% to 45%. Basal anterior septal, basal inferior septal, mid anterior septal, mid inferior septal , and apical septal wall segments are hypokinetic. There is [id number] mitral regurg - left ventricular function appears to be lower with new wall motion changes since echocardiogram from 04/08/16. HOSPITAL COURSE: This is a 45-year-old female with a complicated medical history including insulin-dependent diabetes; end-stage renal disease; on hemodialysis; history of cardioembolic stroke in March of 2016, who is anticoagulated with Coumadin, who presented to the emergency department with complaints of dyspnea. The patient states that she has had symptoms of dyspnea since Friday evening following her dialysis session. She reported symptoms consistent with orthopnea stating that she was extremely short of breath when lying flat and felt as if she was drowning, but symptoms would improve when she was sitting upright. She denied any associated chest pain, but states that she has had intermittent periods of left- sided chest heaviness and palpitations, but again was asymptomatic prior to her time in the emergency department. At the time of admission, the patient had an essentially normal CBC, shows chronic anemia. Hemoglobin was 8.5 at the time of admission. INR was subtherapeutic at 1.4. She was noted to be hyperkalemic with a potassium of 5.4. BUN and creatinine were elevated as would be expected in end-stage renal disease with a BUN of 44 and creatinine of 8.36. Random glucose was 129 mg/dL, but her troponin was significantly elevated at 0.97. When compared to prior troponins, this was a significant change. Prior troponins had been approximately 0.1 or 0.2 at maximum. Chest x-ray also demonstrated cardiomegaly with pulmonary venous congestion. The patient was subsequently admitted to observation for CHF exacerbation with elevated troponin thought to be demand related as well as hyperkalemia. The patient was dialyzed the evening of admission and total of 3 kg of fluid was removed and the patient noted significant improvement in her dyspnea. She denied any further complaints of orthopnea. She states that she was able to lie flat without any symptoms. Her cough improved as well. Her troponins overnight increased from 0.97 to 0.26 and then trended down to 1.16 and 1.13. Again, she remained chest pain free throughout her hospital stay. She underwent repeat echocardiogram which did show some new wall motion changes and slightly worsening mitral regurg and left ventricular function. Prior to her hospital admission, the patient was scheduled for cardiac catheterization at [facility] for 07/30/16, which is tomorrow. Requested consultation from Cardiology, Dr. Harris, who evaluated the patient and reviewed her echocardiogram. He felt it was appropriate for her to be discharged from the hospital with plan for outpatient cardiac catheterization at [facility] tomorrow. DISPOSITION AND DISCHARGE PLAN: The patient is discharged to home without changes to her medication, although she would benefit from increasing her dose of Coumadin with close monitoring of her INR. She has a pending cardiac catheterization at [facility] tomorr which she is planning on attending. She did receive dialysis on 07/28/16 and was at nearly her dry weight at the time of discharge. Dialysis was not repeated on the morning prior to discharge. She will resume dialysis on 07/31/16. Recommend close followup with her primary care provider, ranger aide, and commissioner conservation of resources. SHAMAR LOZANO CC: Dr. Brito; Dr. Adams * [id number]/[facility] #: [id number] [facility]
== END 2016-07-29 14:00 | disposition home or self-care (01) ==
LOC: ED 13:21 → MEDTELE 15:57
PROVIDERS: ADMIT Hospitalist; ATTEND Hospitalist
DX: I13.2 Hypertensive heart and chronic kidney disease with heart failure and with stage 5 chronic kidney disease, or end stage renal disease (principal); N18.6 End stage renal disease; I50.9 Heart failure, unspecified; Z99.2 Dependence on renal dialysis; E11.9 Type 2 diabetes mellitus without complications; Z79.4 Long term (current) use of insulin; Z86.73 Personal history of transient ischemic attack (TIA), and cerebral infarction without residual deficits; E78.5 Hyperlipidemia, unspecified; I51.7 Cardiomegaly; R79.9 Abnormal finding of blood chemistry, unspecified; Z79.899 Other long term (current) drug therapy; Z87.891 Personal history of nicotine dependence; Z88.8 Allergy status to other drugs, medicaments and biological substances
CPT/HCPCS: 36415; 71010; 80048; 80053; 83036; 83605; 83735; 84484; 85025; 85610; 87641; 90935; 93005; 93306; 96372; 99284; A9270-GY; G0378; J1644

== ENCOUNTER 2016-09-04 11:55 | Emergency (ER) | payer MEDICARE, MEDICAID ==
--- NOTE | 2016-09-04 13:08 | ED ---
HPI Chest Pain - HPI Summary HPI Summary: Patient presents for delayed evaluation of intermittent, atraumatic, sharp, non radiating lower R anterior chest wall pain. Occurs with coughing and palpations. Denies systemic symptoms, shortness of breath, swelling, lightheadedness. No allev factors attempted. Feels well otherwise. - History of Current Complaint Chief Complaint: EDChestPainROMI Time Seen by Provider: 09/04/16 12:38 Hx Obtained From: Patient Onset/Duration: Started Days Ago Timing: Intermittent, Lasting Seconds Initial Severity: Mild Current Severity: Mild Pain Intensity: 10 - Additional Pertinent History Primary Care Physician: KISHOR - Allergy/Home Medications Allergies/Adverse Reactions: Allergies Allergy/AdvReac Type Severity Reaction Status Date / Time Allopurinol Allergy Severe Fever Verified 09/04/16 11:57 PMH/Surg Hx/FS Hx/Imm Hx Endocrine/Hematology History: Reports: Hx Anticoagulant Therapy - ASA 81, Hx Diabetes - TYPE 2 Denies: Hx Thyroid Disease Cardiovascular History: Reports: Hx Cardiomegaly, Hx Congestive Heart Failure, Hx Hypercholesterolemia, Hx Hypertension, Other Cardiovascular Problems/ Disorders - pericardial effusion Denies: Hx Angina, Hx Coronary Artery Disease, Hx Deep Vein Thrombosis, Hx Myocardial Infarction, Hx Pacemaker/ICD, Hx Valvular Heart Disease Respiratory History: Reports: Hx Chronic Bronchitis, Hx Pulmonary Edema, Other Respiratory Problems/Disorders - chronic cough Denies: Hx Asthma, Hx Chronic Obstructive Pulmonary Disease (COPD), Hx Lung Cancer GI History: Reports: Hx Gastroesophageal Reflux Disease Denies: Hx Gall Bladder Disease, Hx Gastrointestinal Bleed, Hx Ulcer, Hx Urosepsis History: Reports: Hx Chronic Renal Failure, Hx Dialysis - MWF, Hx Renal Disease - ON DIALYSIS, Other Problems/Disorders - renal failure cyst Denies: Hx Acute Renal Failure, Hx Benign Prostatic Hyperplasia, Hx Kidney Infection, Hx Kidney Stones Musculoskeletal History: Reports: Hx Arthritis, Hx Back Problems, Hx Osteoporosis, Other Musculoskeletal History - arthritis osteoarthritis right knee Sensory History: Reports: Hx Contacts or Glasses, Hx Glaucoma, Hx Hearing Aid - REMOVED Opthamlomology History: Reports: Hx Contacts or Glasses, Hx Glaucoma Neurological History: Reports: Hx Headaches, Other Neuro Impairments/Disorders - neuropathy benito feet Denies: Hx Dementia, Hx Migraine, Hx Seizures, Hx Transient Ischemic Attacks (TIA) Psychiatric History: Reports: Hx Anxiety, Hx Depression Denies: Hx Panic Disorder - Surgical History Surgery Procedure, Year, and Place: 2000, 2002. LEFT HIP SX PIN 1985. Cardiac cath, no stent. Renal fistual L arm. pericardial window Hx Anesthesia Reactions: No - Immunization History Date of Influenza Vaccine: 2015 Infectious Disease History: No Infectious Disease History: Denies: Hx Clostridium Difficile, Hx Hepatitis, Hx Human Immunodeficiency Virus (HIV), Hx of Known/Suspected MRSA, Hx Shingles, Hx Tuberculosis, Hx Known/ Suspected VRE, Hx Known/Suspected VRSA, History Other Infectious Disease, Traveled Outside the [place] in Last 30 Days - Family History Known Family History: Positive: None, Unknown, Hypertension, Diabetes Negative: Cardiac Disease - Social History Alcohol Use: None Substance Use Type: Reports: None Hx Tobacco Use: Yes - quit 2012 Smoking Status (MU): Former Smoker Type: Cigarettes Length of Time of Smoking/Using Tobacco: 10+ Have You Smoked in the Last Year: No Review of Systems Negative: Fever, Chills Positive: Chest Pain. Negative: Palpitations Positive: Cough - Non productive, dry cough.. Negative: Shortness Of Breath All Other Systems Reviewed And Are Negative: Yes Physical Exam Triage Information Reviewed: Yes Vital Signs On Initial Exam: Initial Vitals Temp Pulse Resp BP Pulse Ox 98.4 F 70 16 141/61 100 09/04/16 11:57 09/04/16 11:57 09/04/16 11:57 09/04/16 11:57 09/04/16 11:57 Vital Signs Reviewed: Yes Appearance: Positive: Well-Appearing, No Pain Distress, Well-Nourished Skin: Positive: Warm, Skin Color Reflects Adequate Perfusion, Dry, Other - Reproducible intercostal, R anterior/inferior chest wall pain. NO skin rashes or fluctuance. Respiratory/Lung Sounds: Positive: Clear to Auscultation, Breath Sounds Present Cardiovascular: Positive: Normal, RRR, Pulses are Symmetrical in both Upper and Lower Extremities Abdomen Description: Positive: Nontender, No Organomegaly, Soft Musculoskeletal: Positive: Normal, Strength/ROM Intact Neurological: Positive: Normal, Sensory/Motor Intact, Alert, Oriented to Person Place, Time, CN Intact II-III, Reflexes Intact, NV Bundle Intact Distally, Normal Gait. Negative: Cerebellar Dysfunction - Ric Coma Scale Coma Scale Total: 15 Diagnostics - Vital Signs Vital Signs Temp Pulse Resp BP Pulse Ox 09/04/16 12:40 22 158/78 09/04/16 11:57 98.4 F 70 16 141/61 100 - Laboratory Lab Statement: Any lab studies that have been ordered have been reviewed, and results considered in the medical decision making process. - EKG No standard instances Cardiac Rate: NL EKG Rhythm: Sinus Rhythm ST Segment: Normal Ectopy: None EKG Comparison: No Significant Change - No change from 07/28/2016 Chest Pain Course/Dx - Chest Pain Differential Diagnosis/HQI/PQRI: Chest Wall, Lower Respiratory Infection, Pulmonary Embolism, Other: - Primary concern for chest wall pain, but with ESRD and L arm fistula and elevated concern for PE will CTA. Visipaque used and will have regular dialysis. Patient understands. Reviewed dialysis needs and CTA with radiologist. - Diagnoses Provider Diagnoses: Chest wall pain Discharge - Discharge Plan Condition: Stable Disposition: HOME Patient Education Materials: Chest Pain (ED) Referrals: Arti Brito MD [Primary Care Provider] -
[2016-09-04] MEDS ORDERED: Iodixanol* (CONTRAST) 320 MG/ML 100 ML SDV IV ONE (13:26)
--- NOTE | 2016-09-04 13:57 | RAD ---
HISTORY: Chest pain COMPARISONS: October 26, 2012 TECHNIQUE: Multiple contiguous axial CT scans of the chest were obtained after the administration of nonionic intravenous contrast, timed to the pulmonary arterial phase of contrast enhancement.. Coronal and sagittal multiplanar reformations are also submitted for review. FINDINGS: The study is limited by patient motion artifact. This is also limited by suboptimal contrast opacification. NECK AND THYROID: The lower neck and thyroid are unremarkable. CHEST WALL: There is no lower cervical, axillary, or supraclavicular lymphadenopathy by size criteria. HEART AND PERICARDIUM: There is biatrial and biventricular enlargement AORTA AND PULMONARY VASCULATURE: With the limitations of the study, there is no pulmonary filling defect to suggest pulmonary embolism MEDIASTINUM: There is no mediastinal lymphadenopathy by size criteria. DEVI: There is no hilar lymphadenopathy by size criteria. AIRWAY AND ESOPHAGUS: The airway is unremarkable, without endobronchial filling defect. The esophagus is grossly normal. LUNG PARENCHYMA: Evaluation limited by patient breathing motion artifact. There is no obvious parenchymal nodule or mass. PLEURA: No pleural abnormalities are noted. UPPER ABDOMEN: The upper abdomen is unremarkable. BONES AND SOFT TISSUES: Mild degenerative changes are noted OTHER: None. IMPRESSION: 1. LIMITED STUDY. 2. WITHIN THE LIMITATIONS OF THE STUDY, THERE IS NO APPRECIABLE PULMONARY ARTERIAL FILLING DEFECT TO SUGGEST PULMONARY EMBOLISM. 3. CARDIOMEGALY
[2016-09-04 14:10] VITALS: BP 129/56
== END 2016-09-04 14:10 | disposition home or self-care (01) ==
LOC: ED 11:55
DX: R07.89 Other chest pain (principal); R05 Cough; Z87.891 Personal history of nicotine dependence
CPT/HCPCS: 71275; 93005; 99282; Q9967